=== PATIENT | male | born 1930 | race Caucasian/White ===

== ENCOUNTER 2017-09-22 22:09 | Inpatient (IN) | payer MEDICARE, BC ==
[2017-09-22] MEDS ORDERED: Ondansetron ODT 4 MG TAB PO PRN (23:17)
[2017-09-22] MEDS ORDERED: Eucerin (Mineral Oil/Petrolatum,White) 30 gm Jar TOP PRN (23:17)
[2017-09-22] MEDS ORDERED: Chloraseptic Spray 180 ml Bottle PO PRN (23:17)
[2017-09-22] MEDS ORDERED: hydrALAZINE 20 MG/ML VIAL SLOW IVP PRN (23:17)
[2017-09-22] MEDS ORDERED: Sodium Chloride 0.65% Nasal 44 ML BOT EA NARE PRN (23:17)
[2017-09-22] MEDS ORDERED: Artificial Tears 18 DROP/0.9 ML EA EYE PRN (23:17)
[2017-09-22] MEDS ORDERED: Loratadine 10 MG TAB PO PRN (23:17)
[2017-09-22] MEDS ORDERED: Senokot 8.6 MG TAB PO PRN (23:17)
[2017-09-22] MEDS ORDERED: Zolpidem Tartrate 5 MG TAB PO PRN (23:17)
[2017-09-22] MEDS ORDERED: Acetaminophen 325 MG TAB PO PRN (23:17)
[2017-09-22] MEDS ORDERED: Nitroglycerin 0.4 MG TAB (25 Tab Bottle) SL PRN (23:17)
[2017-09-22] MEDS ORDERED: Mag-Al 1200 mg/1200 mg/30 ML UDCUP PO PRN (23:17)
[2017-09-22] MEDS ORDERED: HYDROcodone/Acetaminophen 5/325 mg Tablet PO PRN (23:17)
[2017-09-22] MEDS ORDERED: Diabetic Tussin 200 MG/10 ML UDCUP PO PRN (23:17)
[2017-09-22] MEDS ORDERED: Loperamide HCl 2 MG CAP PO PRN (23:17)
[2017-09-22] MEDS ORDERED: Milk Of Magnesia 30 ML UDCUP PO PRN (23:17)
[2017-09-22] MEDS ORDERED: Ondansetron HCl/PF 4 MG/2 ML Vial IVP PRN (23:17)
[2017-09-22 23:36] VITALS: BMI 28.6
--- NOTE | 2017-09-23 02:15 | HP ---
PRIMARY CARE PHYSICIAN: In [place], [place], Dr. Leonidas Yoon. DATE OF SERVICE: 09/22/2017 REASON FOR ADMISSION: Direct admission from [facility] emergency room to our hospital for CHF exacerbation. HISTORY OF PRESENT ILLNESS: An 87-year-old male who has a history of chronic diastolic heart failure. His last echo in our hospital in 01/2015, at that time , EF was normal. He has history of severe aortic stenosis and severe mitral regurgitation as well as severe tricuspid regurgitation. This patient had aortic valve replacement. He went to [place] emergency room with increasing shortness of breath. Patient reports that the weather was bad in [place] and he got shortness of breath. He was not able to take a deep breath and he was not improving and that is why his advised him to go to emergency room. At [place] emergency room, patient was found with elevated BNP. Creatinine 1.5, and a T inversion in lead V1-V3. Patient was also having increasing lower extremity edema and orthopnea as well as dyspnea on exertion and considering CHF exacerbation. This patient was directly admitted to telemetry floor. As per my report at [place] emergency room, physician spoke with Dr. Smith, who advised this patient to go to telemetry floor for direct admission. When I saw this patient at that time, patient was comfortable. He reports that he is feeling much better since the emergency room treatment. Patient repaired another echocardiography in 12/2016, at that time, which showed normal EF as well as normal diastolic function and normal functioning bioprosthetic valve in the aortic position. PAST MEDICAL HISTORY: 1. History of CVA, hypertension, dyslipidemia, coronary artery disease with history of CABG x1 in 01/2015 2. History of aortic stenosis required aortic valve replacement in 01/[address] Pavon with Magna bioprosthetic valve 3. History of severe mitral regurgitation and severe tricuspid regurgitation. PAST SURGICAL HISTORY: Aortic valve replacement with bioprosthetic valve, CABG x1, thyroidectomy. PAST PSYCHIATRIC HISTORY: Reviewed and negative. CODE STATUS: FULL CODE. Patient's is surrogate decision maker. 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 He is totally independent. He has no history of tobacco, alcohol, or illicit drug abuse. ALLERGIES: The patient is allergic to IODINE. FAMILY HISTORY: No strong family history of premature coronary artery disease, stroke, or cancer. REVIEW OF SYSTEMS: The following complete review of systems was negative, unless otherwise mentioned in the HPI or below: Constitutional: Weight loss or gain, ability to conduct usual activities. Skin: Rash, itching. Eyes: Double vision, pain. ENT/Mouth: Nose bleeding, neck stiffness, pain, tenderness. Cardiovascular: Palpitations, dyspnea on exertion, orthopnea. Respiratory: Shortness of breath, wheezing, cough, hemoptysis, fever or night sweats. Gastrointestinal: Poor appetite, abdominal pain, heartburn, nausea, vomiting, constipation, or diarrhea. Genitourinary: Urgency, frequency, dysuria, nocturia. Musculoskeletal: Pain, swelling. Neurologic/Psychiatric: Anxiety, depression. Allergy/Immunologic: Skin rash, bleeding tendency. Please see my HPI for pertinent positive and negative. All other review of systems reviewed and negative except as mentioned in the HPI. EMERGENCY ROOM COURSE: Patient is given Lasix at other emergency room. CURRENT HOME MEDICATIONS: Amlodipine 5 mg p.o. daily, aspirin 325 mg p.o. daily , vitamin D3 of 1000 unit p.o. daily, Plavix 75 mg p.o. daily, vitamin B12 of 1000 mcg p.o. daily, lisinopril 10 mg p.o. daily, Zocor 20 mg p.o. at bedtime, Coenzyme Q10 of 100 mg p.o. daily. PHYSICAL EXAMINATION: VITAL SIGNS: Currently, temperature 97.5, pulse 77, respiratory rate 18, saturation 100% on 2 liter oxygen, blood pressure 134/89, weight 172 pounds. GENERAL: Patient is currently alert, awake, no obvious acute distress. HEENT: Normocephalic, atraumatic. Eyes: Pupils round, reactive to light. Extraocular muscle intact. ENT: Oropharynx within normal limits. Moist mucous membranes, no oral lesion, no pharyngeal erythema, no exudate. NECK: Supple, no JVD, no thyromegaly, no carotid bruit. LUNGS: Air entry reduced at base. Few basal rales noted. CARDIAC: S1, S2 appears regular. Systolic murmur noted parasternally with bioprosthetic click. No gallop, no rub. ABDOMEN: Soft, bowel sounds present, nontender, nondistended. No organomegaly , no mass, no suprapubic tenderness. BACK: Unremarkable, no CVA tenderness. EXTREMITIES: Upper extremity, passive movement of all joints are normal. Lower extremity, trace bilateral pitting edema noted. Good distal pulsation. No calf tenderness. SKIN: No skin rash. HEMATOLOGICAL: No lymphadenopathy. PSYCHIATRIC: Normal affect. SIGNIFICANT LABORATORY DATA: BNP 624, creatinine 1.5. EKG, T inversion in lead V1-V3. Chest x-ray showing small pleural effusion, pulmonary vascular congestion. All other blood tests including CBC, BMP, and coagulation profile noted at a local emergency room in [place]. ASSESSMENT AND PLAN: IMPRESSION: 1. Acute on chronic diastolic congestive heart failure exacerbation. 2. History of aortic stenosis with a history of bioprosthetic aortic valve replacement. 3. History of coronary artery disease with a history of coronary artery bypass grafting x1. 4. Hypertension. 5. Dyslipidemia. 6. Chronic kidney disease stage 3. PLAN: Admission to telemetry floor. Continue Lasix 40 mg IV b.i.d., monitor input output chart. Monitor labs and replacing electrolytes accordingly. Resume patient's home medications once verified. DVT prophylaxis is Lovenox 40 mg subcutaneously daily. Gastrointestinal prophylaxis with Pepcid 20 mg p.o. b.i.d., DuoNeb q.6 hourly. Monitor vitals and adjust blood pressure medication while in hospital. Repeat labs tomorrow morning. CODE STATUS: The patient is FULL CODE. The patient's is surrogate decision maker. Disposition plan based on clinical course. We are expecting patient's stay in hospital more than 2 midnights. Plan of care discussed with the patient in detail. MTDD
[2017-09-23 05:31] LABS: #Eosinphils 0.1 thou/uL (0.0-0.7); #Lymphocytes 1.4 thou/uL (1.20-3.40); #Monocytes 0.7 thou/uL (0.11-0.59); #Neutrophils 2.5 thou/uL (1.40-6.50); %Basophils 0.1 % (0.0-1.0); %Eosinophils 2.8 % (0.0-10.0); %Lymphocytes 30.1 % (21.0-51.0); %Monocytes 14.4 % (0.0-10.0); %Neutrophils 52.5 % (42.0-75.0); Hemoglobin 15.4 g/dL (14.0-18.0); Mean Corpuscular HGB CONC 31.4 g/dL (32.0-36.0); Mean Corpuscular Hemoglobin 29.5 pg (27.0-31.0); Mean Corpuscular Volume 93.9 fl (80.0-94.0); Mean Platelet Volume 10.4 fL (7.4-10.4); Platelet Count 157 thou/uL (130-400); White Blood Cell (WBC) Count 4.7 thou/uL (4.8-10.8)
[2017-09-23 05:32] LABS: INR-International Normal Ratio 1.2; PTT 35.1 SEC (22.9-36.1); Prothrombin Time 15.9 SEC (12.0-14.7)
[2017-09-23] MEDS: Furosemide 40 MG/4 ML VIAL SLOW IVP SCH ×2 (05:39→14:28)
[2017-09-23 05:43] LABS: ALT (SGPT) 18 U/L (8-55); AST (SGOT) 22 U/L (5-34); Albumin 3.2 g/dL (3.4-4.8); Alkaline Phosphatase 87 U/L (40-150); Anion Gap 13 mmol/L (10-20); BUN (Urea Nitrogen) 16 mg/dL (8.4-25.7); Bilirubin, Total 1.7 mg/dL (0.2-1.2); Calc. Creatinine Clearance 54 mL/min (70-130); Calcium 9.3 mg/dL (7.8-10.44); Carbon Dioxide 24 mmol/L (23-31); Chloride 105 mmol/L (98-107); Estimated GFR-MDRD 66; Globulin 3.2 g/dL (2.4-3.5); Glucose 93 mg/dL (83-110); Potassium 3.4 mmol/L (3.5-5.1); Protein, Total 6.4 g/dL (5.8-8.1); Sodium 139 mmol/L (136-145)
[2017-09-23 07:11] LABS: Bilirubin Negative (Negative); Blood, Urine Negative (Negative); Clarity CLEAR (Clear); Glucose, Urine (Dipstick) Negative (Negative); Leukocyte Negative (Negative); Nitrite Negative (Negative); Protein, Urine (Dipstick) Negative (Neg-Trace); Specific Gravity, Urine 1.008 (1.002-1.036); Urobilinogen 0.2 mg/dL (0.2-1.0)
[2017-09-23 07:12] LABS: Bacteria/HPF None Seen HPF (None Seen); Hyaline Casts/LPF 0-3 HYALINE CAST LPF (0-3 Hyaline); Pathc Cast-AUWi Flag 0.43 (0-2.49); RBC/HPF 0-3 HPF (0-3); Squamous Epithelial None Seen HPF (0-3); WBC/HPF None Seen HPF (0-3)
[2017-09-23] MEDS: Enoxaparin Sodium 40 MG/0.4 ML SYRINGE SC SCH (08:44)
[2017-09-23] MEDS: Famotidine 20 MG TAB PO SCH ×2 (08:44→21:08)
[2017-09-23] MEDS ORDERED: Prevnar 13-Val Conj/PF 0.5 ML SYRINGE IM ONE (09:00)
[2017-09-23] MEDS ORDERED: Potassium Chloride 20 MEQ TAB PO SCH (13:30)
--- NOTE | 2017-09-23 14:25 | PDOC.PN ---
- Subjective Encounter Start Date: 09/23/17 Encounter Start Time: 07:20 Pt seen for followup re: CHF exacerbation. Reports feeling better. No nausea or vomiting. Dyspnea is better. No chest pain. - Objective Resuscitation Status: Resuscitation Status FULL:Full Resuscitation MAR Reviewed: Yes Vital Signs & Weight: Vital Signs (12 hours) Temp Pulse Pulse Pulse Resp BP BP 09/23/17 12:12 80 14 09/23/17 12:00 97.8 F 75 16 09/23/17 08:47 77 80 127/75 136/80 09/23/17 08:00 98.1 F 74 18 09/23/17 07:03 70 14 09/23/17 04:00 98.2 F 76 16 BP Pulse Ox Pulse Ox Pulse Ox 09/23/17 12:12 09/23/17 12:00 128/74 96 09/23/17 08:47 91 L 92 L 09/23/17 08:00 130/74 98 09/23/17 07:03 09/23/17 04:00 117/71 96 Weight Weight 172 lb 1 oz I&O: 09/22/17 09/23/17 09/24/17 06:59 06:59 06:59 Intake Total 240 Balance 240 Result Diagrams: 09/23/17 04:51 09/23/17 04:51 EKG Reviewed by me: Yes (Tele: NSR) Phys Exam - Physical Examination Constitutional: NAD HEENT: PERRLA, moist MMs, sclera anicteric, oral pharynx no lesions Neck: no nodes, supple, full ROM JVD Respiratory: no wheezing, no rhonchi Bibasal crackles Cardiovascular: RRR, no rub Gastrointestinal: soft, non-tender Musculoskeletal: edema present Neurological: moves all 4 limbs Psychiatric: normal affect Skin: no rash Dx/Plan (1) Acute on chronic diastolic (congestive) heart failure Code(s): I50.33 - ACUTE ON CHRONIC DIASTOLIC (CONGESTIVE) HEART FAILURE Status : Acute Comment: Continue diuretics, await cardiology consult (2) CAD (coronary artery disease) Code(s): I25.10 - ATHSCL HEART DISEASE OF [place] CORONARY ARTERY W/O ANG PCTRS Status: Chronic Comment: stable (3) HLD (hyperlipidemia) Code(s): E78.5 - HYPERLIPIDEMIA, UNSPECIFIED Status: Chronic Comment: continue statin (4) HTN (hypertension) Code(s): I10 - ESSENTIAL (PRIMARY) HYPERTENSION Status: Chronic Qualifiers: Hypertension type: essential hypertension Qualified Code(s): I10 - Essential (primary) hypertension Comment: Monitor vital signs, titrate antihypertensives as needed (5) H/O aortic valve replacement Code(s): Z95.2 - PRESENCE OF PROSTHETIC HEART VALVE Status: Chronic Comment : stable - Plan * . Review of Systems - Review of Systems Constitutional: negative: fever, chills, sweats, weakness, malaise Respiratory: Shortness of Breath, SOB with Excertion. negative: Cough, Dry, Hemoptysis, Pleuritic Pain, Sputum, Wheezing Cardiovascular: negative: chest pain, palpitations, orthopnea, paroxysmal nocturnal dyspnea, edema, light headedness Gastrointestinal: negative: Nausea, Vomiting, Abdominal Pain, Diarrhea, Constipation, Melena, Hematochezia Skin: negative: Rash, Lesions, Carlo, Bruising - Medications/Allergies Allergies/Adverse Reactions: Allergies Allergy/AdvReac Type Severity Reaction Status Date / Time iodine Allergy Rash Verified 02/06/15 00:42 Sulfa (Sulfonamide Allergy Verified 01/06/17 19:48 Antibiotics) Medications: Current Medications Acetaminophen (Tylenol) 650 mg PO Q4H PRN PRN Reason: Headache/Fever or Pain Hydrocodone Bitart/Acetaminophen ([place] 5/325) 1 tab PO Q4H PRN PRN Reason: Moderate Pain (4-6) Al Hydroxide/Mg Hydroxide (Maalox) 30 ml PO Q6H PRN PRN Reason: Heartburn or Indigestion Albuterol/Ipratropium (Duoneb) 3 ml NEB [id number] [facility] Last Admin: 09/23/17 12:12 Dose: 3 ml Artificial Tears (Tears Naturale) 0 drop EA EYE PRN PRN PRN Reason: Dry Eyes Enoxaparin Sodium (Lovenox) 40 mg SC 0900 [facility] Last Admin: 09/23/17 08:44 Dose: 40 mg Famotidine (Pepcid) 20 mg PO BID [facility] Last Admin: 09/23/17 08:44 Dose: 20 mg Furosemide (Lasix) 40 mg SLOW IVP 0600,1400 [facility] Last Admin: 09/23/17 05:39 Dose: 40 mg Guaifenesin (Robitussin Sf) 200 mg PO Q4H PRN PRN Reason: Cough Hydralazine HCl (Apresoline) 10 mg SLOW IVP Q4H PRN PRN Reason: Systolic BP > 180 Loperamide HCl (Imodium) 2 mg PO PRN PRN PRN Reason: Diarrhea/Loose Stools Loratadine (Claritin) 10 mg PO DAILYPRN PRN PRN Reason: Sinus Symptoms Magnesium Hydroxide (Milk Of Magnesium) 30 ml PO DAILYPRN PRN PRN Reason: Constipation Mineral Oil/White Petrolatum (Eucerin Cream) 0 gm TOP BIDPRN PRN PRN Reason: Dry Skin Nitroglycerin (Nitrostat) 0.4 mg SL Q5MIN PRN PRN Reason: Chest Pain Ondansetron HCl (Zofran Odt) 4 mg PO Q6H PRN PRN Reason: Nausea/Vomiting Ondansetron HCl (Zofran) 4 mg IVP Q6H PRN PRN Reason: Nausea/Vomiting Phenol (Chloraseptic [place] 180 Ml Bot) 0 ml PO PRN PRN PRN Reason: Sore Throat Potassium Chloride (K-Dur) 40 meq PO NOW [facility] Stop: 09/23/17 15:30 Senna (Senokot) 2 tab PO HSPRN PRN PRN Reason: Constipation Sodium Chloride ([place] Nasal [place] 0.65%) 0 ml EA NARE QIDPRN PRN PRN Reason: Nasal Congestion Sodium Chloride (Flush - Normal Saline) 10 ml IVF Q12HR [facility] Last Admin: 09/23/17 08:45 Dose: 10 ml Sodium Chloride (Flush - Normal Saline) 10 ml IVF PRN PRN PRN Reason: Saline Flush Zolpidem Tartrate (Ambien) 5 mg PO HSPRN PRN PRN Reason: Insomnia
[2017-09-23] MEDS: Atorvastatin Calcium 10 MG TAB PO SCH (21:08)
[2017-09-24] MEDS: Furosemide 40 MG/4 ML VIAL SLOW IVP SCH ×2 (05:36→16:05)
[2017-09-24 06:04] LABS: Eosinophils 2 % (0-10); Hemoglobin 15.5 g/dL (14.0-18.0); Lymphocytes 32 % (21-51); MDiff Complete? YES; Mean Corpuscular HGB CONC 32.2 g/dL (32.0-36.0); Mean Corpuscular Hemoglobin 29.9 pg (27.0-31.0); Mean Corpuscular Volume 92.9 fl (80.0-94.0); Mean Platelet Volume 10.6 fL (7.4-10.4); Monocytes 17 % (0-10); Neutrophil 49 % (42-75); Platelet Count 130 thou/uL (130-400); RBC Distribution Width 15.6 % (11.5-14.5); Red Blood Cell (RBC) Count 5.18 mill/uL (4.70-6.10); White Blood Cell (WBC) Count 4.5 thou/uL (4.8-10.8)
[2017-09-24 06:05] LABS: BUN (Urea Nitrogen) 15 mg/dL (8.4-25.7); Calc. Creatinine Clearance 48 mL/min (70-130); Calcium 9.5 mg/dL (7.8-10.44); Carbon Dioxide 20 mmol/L (23-31); Chloride 104 mmol/L (98-107); Estimated GFR-MDRD 58; Glucose 89 mg/dL (83-110); Potassium 4.3 mmol/L (3.5-5.1); Sodium 138 mmol/L (136-145)
[2017-09-24 06:45] LABS: Anion Gap 18 mmol/L (10-20)
--- NOTE | 2017-09-24 08:50 | CON ---
DATE OF CONSULTATION: 09/23/2017 PRIMARY PLYCOR OPERATOR: Garrick Smith MD REASON FOR ADMISSION: Congestive heart failure. HISTORY OF PRESENT ILLNESS: Mr. Salinas Jackson is a very pleasant 87-year-old gentleman with history of coronary artery disease and aortic valve disease, previous aortic valve replacement. He was sent her e for progressive swelling of his lower extremities and shortness of breath and has been admitted for further therapy. The patient is not having chest pain or pressure, but he has been short of breath and having increasi ng edema. He was transferred from [place]. PAST MEDICAL HISTORY: 1. History of stroke. 2. History of bypass x1 and aortic valve replacement in 2014. 3. History of mitral regurgitation. PAST SURGICAL HISTORY: Previous aortic valve replacement with prosthetic valve, bioprosthetic. PSYCHIATRIC HISTORY: Negative. SOCIAL HISTORY: No alcohol or tobacco. ALLERGIES: IODINE. FAMILY HISTORY: No strong family history of coronary artery disease. REVIEW OF SYSTEMS: Constitutional: Some confusion and disorientation. Vision: No changes. Hearin g: No changes. Pulmonary: Shortness of breath. Cardiac: Shortness of breath. Gastrointestinal: No nausea, vomiting, or diarrhea. Skin: No rashes. Neurologic: No unilateral weakness or numbnes s. Psychiatric: No unusual depression or anxiety. Hematologic: No unusual bruising. Genitourinar y: No burning with urination. HOME MEDICATIONS: 1. Amlodipine. 2. Aspirin. 3. Plavix. 4. Lisinopril. 5. Zocor. PHYSICAL EXAMINATION: GENERAL: A pleasant elderly gentleman. He is a little disoriented now; it is nightime and he is a l ittle turned around, but he orients quickly. VITAL SIGNS: Blood pressure is 139/70, pulse 80. HEENT: Eyes: Sclerae nonicteric. Mouth: Mucous membranes moist. NECK: Supple. No lymphadenopathy. LUNGS: Few basilar rales. CARDIOVASCULAR: There is a harsh systolic murmur at the left upper sternal border. No diastolic mur mur, no S3. ABDOMEN: Soft, nontender. EXTREMITIES: No clubbing or cyanosis. There is moderate edema. SKIN: Warm and dry. PERTINENT LABORATORY AND X-RAY FINDINGS: Potassium 3.4, creatinine is 1.06. BNP 332 back in 2017. EKG is currently in sinus rhythm. The 12-lead EKG does show some T-wave inversions in V3. No other T-wave changes, no significant ST changes. The most recent echocardiogram in 2014, had severe aortic stenosis that was pre-surgery, but the echocardiogram done 2017, revealed normal ejection fraction o f 60-65%. ASSESSMENT: 1. Systolic heart failure, likely diastolic, acute on chronic. 2. Previous aortic valve replacement. 3. Volume overload. PLAN: 1. Agree with intravenous Lasix. 2. Echocardiogram to be repeated. 3. Dr. Smith to resume patient's care tomorrow morning.
[2017-09-24] MEDS: Ubidecarenone 50 MG CAP PO SCH (10:53)
[2017-09-24] MEDS: Lisinopril 10 MG TAB PO SCH (10:54)
[2017-09-24] MEDS: Aspirin 325 mg Enteric Coated Tablet PO SCH (10:54)
[2017-09-24] MEDS: Clopidogrel Bisulfate 75 MG TAB PO SCH (10:55)
[2017-09-24] MEDS: Cyanocobalamin (Vitamin B-12) 1,000 MCG TAB PO SCH (10:55)
[2017-09-24] MEDS: Amlodipine 5 MG TAB PO SCH (10:55)
[2017-09-24] MEDS: Enoxaparin Sodium 40 MG/0.4 ML SYRINGE SC SCH (10:56)
[2017-09-24] MEDS: Famotidine 20 MG TAB PO SCH (10:56)
[2017-09-24] MEDS ORDERED: ISOVUE-370 76%-LOCM 1 ML ONE (13:16)
--- NOTE | 2017-09-24 13:33 | PDOC.PN ---
- Subjective Encounter Start Date: 09/24/17 Encounter Start Time: 11:00 Pt seen for followup re: CHF exacerbation. Reports feeling well. Reports having chest pain with deep breaths earlier. No nausea or vomiting. - Objective Resuscitation Status: Resuscitation Status FULL:Full Resuscitation MAR Reviewed: Yes Vital Signs & Weight: Vital Signs (12 hours) Temp Pulse Resp BP Pulse Ox 09/24/17 08:18 100 09/24/17 08:15 75 15 100 09/24/17 08:14 96.2 F L 78 20 137/78 100 09/24/17 08:00 96.2 F L 75 15 09/24/17 04:00 97.7 F 76 20 109/61 99 Weight Weight 171 lb 9.6 oz I&O: 09/23/17 09/24/17 09/25/17 06:59 06:59 06:59 Intake Total 240 460 Output Total 350 Balance 240 110 Result Diagrams: 09/24/17 05:02 09/24/17 05:02 EKG Reviewed by me: Yes (Tele: NSR) Phys Exam - Physical Examination Constitutional: NAD HEENT: PERRLA, moist MMs, sclera anicteric, oral pharynx no lesions Neck: no nodes, supple, full ROM JVD Respiratory: no wheezing, no rales, no rhonchi, clear to auscultation bilateral Cardiovascular: RRR, no rub Gastrointestinal: soft, non-tender, positive bowel sounds Trace edema ramos LE Neurological: moves all 4 limbs Psychiatric: normal affect Skin: no rash Dx/Plan (1) Acute on chronic diastolic (congestive) heart failure Code(s): I50.33 - ACUTE ON CHRONIC DIASTOLIC (CONGESTIVE) HEART FAILURE Status : Acute Comment: Continue diuretics. Appreciate cardiology consult. 2D echo pending. (2) Chest pain Code(s): R07.9 - CHEST PAIN, UNSPECIFIED Status: Acute Comment: Brief episode of pleuritic chest pain, check d-dimer to r/o PE (3) CAD (coronary artery disease) Code(s): I25.10 - ATHSCL HEART DISEASE OF [place] CORONARY ARTERY W/O ANG PCTRS Status: Chronic Comment: stable (4) HLD (hyperlipidemia) Code(s): E78.5 - HYPERLIPIDEMIA, UNSPECIFIED Status: Chronic Comment: continue statin (5) HTN (hypertension) Code(s): I10 - ESSENTIAL (PRIMARY) HYPERTENSION Status: Chronic Qualifiers: Hypertension type: essential hypertension Qualified Code(s): I10 - Essential (primary) hypertension Comment: titrate antihypertensives as needed (6) H/O aortic valve replacement Code(s): Z95.2 - PRESENCE OF PROSTHETIC HEART VALVE Status: Chronic Comment : stable - Plan plan discussed w/ family, PT/OT, out of bed/ambulate * . Likely home 24-48 hrs. Review of Systems - Review of Systems Constitutional: negative: fever, chills, sweats, weakness, malaise Respiratory: SOB with Excertion. negative: Cough, Dry, Shortness of Breath, Hemoptysis, Pleuritic Pain, Sputum, Wheezing Cardiovascular: chest pain. negative: palpitations, orthopnea, paroxysmal nocturnal dyspnea, edema, light headedness Gastrointestinal: negative: Nausea, Vomiting, Abdominal Pain, Diarrhea, Constipation, Melena, Hematochezia Genitourinary: negative: Dysuria, Frequency, Incontinence, Hematuria, Retention - Medications/Allergies Allergies/Adverse Reactions: Allergies Allergy/AdvReac Type Severity Reaction Status Date / Time iodine Allergy Rash Verified 02/06/15 00:42 Sulfa (Sulfonamide Allergy Verified 01/06/17 19:48 Antibiotics) Medications: Current Medications Acetaminophen (Tylenol) 650 mg PO Q4H PRN PRN Reason: Headache/Fever or Pain Hydrocodone Bitart/Acetaminophen ([place] 5/325) 1 tab PO Q4H PRN PRN Reason: Moderate Pain (4-6) Al Hydroxide/Mg Hydroxide (Maalox) 30 ml PO Q6H PRN PRN Reason: Heartburn or Indigestion Albuterol/Ipratropium (Duoneb) 3 ml NEB [id number] [facility] Last Admin: 09/24/17 08:15 Dose: 3 ml Amlodipine Besylate (Norvasc) 5 mg PO DAILY [facility] Last Admin: 09/24/17 10:55 Dose: 5 mg Artificial Tears (Tears Naturale) 0 drop EA EYE PRN PRN PRN Reason: Dry Eyes Aspirin (Ecotrin) 325 mg PO DAILY [facility] Last Admin: 09/24/17 10:54 Dose: 325 mg Atorvastatin Calcium (Lipitor) 10 mg PO HS [facility] Last Admin: 09/23/17 21:08 Dose: 10 mg Cholecalciferol (Vitamin D3) 1,000 units PO DAILY [facility] Last Admin: 09/24/17 10:54 Dose: 1,000 units Clopidogrel Bisulfate (Plavix) 75 mg PO DAILY [facility] Last Admin: 09/24/17 10:55 Dose: 75 mg Coenzyme Q10 (Coenzyme Q10) 100 mg PO DAILY [facility] Last Admin: 09/24/17 10:53 Dose: 100 mg Cyanocobalamin (Vitamin B-12) 1,000 mcg PO DAILY [facility] Last Admin: 09/24/17 10:55 Dose: 1,000 mcg Enoxaparin Sodium (Lovenox) 40 mg SC 0900 [facility] Last Admin: 09/24/17 10:56 Dose: 40 mg Famotidine (Pepcid) 20 mg PO 0900 [facility] Furosemide (Lasix) 40 mg SLOW IVP 0600,1400 [facility] Last Admin: 09/24/17 05:36 Dose: 40 mg Guaifenesin (Robitussin Sf) 200 mg PO Q4H PRN PRN Reason: Cough Hydralazine HCl (Apresoline) 10 mg SLOW IVP Q4H PRN PRN Reason: Systolic BP > 180 Lisinopril (Zestril) 10 mg PO DAILY [facility] Last Admin: 09/24/17 10:54 Dose: 10 mg Loperamide HCl (Imodium) 2 mg PO PRN PRN PRN Reason: Diarrhea/Loose Stools Loratadine (Claritin) 10 mg PO DAILYPRN PRN PRN Reason: Sinus Symptoms Magnesium Hydroxide (Milk Of Magnesium) 30 ml PO DAILYPRN PRN PRN Reason: Constipation Mineral Oil/White Petrolatum (Eucerin Cream) 0 gm TOP BIDPRN PRN PRN Reason: Dry Skin Nitroglycerin (Nitrostat) 0.4 mg SL Q5MIN PRN PRN Reason: Chest Pain Ondansetron HCl (Zofran Odt) 4 mg PO Q6H PRN PRN Reason: Nausea/Vomiting Ondansetron HCl (Zofran) 4 mg IVP Q6H PRN PRN Reason: Nausea/Vomiting Phenol (Chloraseptic [place] 180 Ml Bot) 0 ml PO PRN PRN PRN Reason: Sore Throat Senna (Senokot) 2 tab PO HSPRN PRN PRN Reason: Constipation Sodium Chloride ([place] Nasal [place] 0.65%) 0 ml EA NARE QIDPRN PRN PRN Reason: Nasal Congestion Sodium Chloride (Flush - Normal Saline) 10 ml IVF Q12HR [facility] Last Admin: 09/23/17 21:08 Dose: 10 ml Sodium Chloride (Flush - Normal Saline) 10 ml IVF PRN PRN PRN Reason: Saline Flush Last Admin: 09/24/17 05:37 Dose: 10 ml Zolpidem Tartrate (Ambien) 5 mg PO HSPRN PRN PRN Reason: Insomnia
--- NOTE | 2017-09-24 16:43 | PDOC.EVN ---
Event Note - Event Note Event Note: Pt has elevated d-dimer. Discussed with patient and . They both report he is not allergic to iodine or IV dye, had cardiac cath and CT angiograms in the past. Will check CT to r/o PE. Pt also appears to be developing delirium, oriented to person only. No evidence of infection at this time, pt is not hypoxic. Will check TSH and liver profile, will continue to monitor. Neuro exam was nonfocal.
--- NOTE | 2017-09-24 18:23 | PDOC.EVN ---
Event Note - Event Note Event Note: CTA report reviewed. 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 Updated pt and . In terms of confusion, pt's reports that the confusion started prior to ER visit (cause of the visit). Will continue to monitor and look for other etiologies.
[2017-09-24 18:45] LABS: ALT (SGPT) 16 U/L (8-55); AST (SGOT) 24 U/L (5-34); Alkaline Phosphatase 105 U/L (40-150); Bilirubin, Total 2.1 mg/dL (0.2-1.2)
[2017-09-24] MEDS: Atorvastatin Calcium 10 MG TAB PO SCH (20:32)
--- NOTE | 2017-09-24 21:35 | CT ---
CTA OF THE CHEST WITH CONTRAST 09/24/17 COMPARISON: 01/07/17 HISTORY: Shortness of breath. TECHNIQUE: Multiple contiguous axial images are obtained in a CTA of the chest with contrast per pulmonary embol ism protocol. 3D oblique MIP reformats and direct coronal reformats were performed. FINDINGS: There is an abnormal web-like appearance within the main pulmonary arteries. These may represent reca nalized remote bilateral pulmonary emboli. This could also represent some short of unusual mixing art ifact. These abnormalities extend into the pulmonary arteries to the lower lobes. No complete occlusi on of the pulmonary artery and vessels is seen. The heart is enlarged. There is straightening of the interventricular septum which is unchanged kelsie red to the prior examination. No hilar or mediastinal lymphadenopathy are appreciated. There are small bilateral pleural effusions with adjacent atelectasis. There is a 1.9 cm mass-like ar ea in the lingula which has slightly enlarged compared to the prior examination. This could represent mild atelectasis but a pulmonary mass cannot be excluded. The visualized subdiaphragmatic structures are unremarkable. Degenerative changes are seen in the spi ne. The chest wall soft tissues are unremarkable. IMPRESSION: 1. There are web-like opacities in the pulmonary arteries. These do not have the appearance of a cute pulmonary emboli but these could represent recanalized chronic remote pulmonary emboli. These we re not seen on the prior examination from 2017. 2. Bilateral pleural effusions. 3. There is a mass-like area in the lingula which appears to have enlarged compared to the prior examination. This could represent round atelectasis but a pulmonary mass cannot be excluded. Code T POS: [facility]
[2017-09-25] MEDS: Furosemide 40 MG/4 ML VIAL SLOW IVP SCH ×2 (05:35→14:40)
[2017-09-25 05:48] LABS: Anion Gap 14 mmol/L (10-20); BUN (Urea Nitrogen) 15 mg/dL (8.4-25.7); Calc. Creatinine Clearance 47 mL/min (70-130); Calcium 9.3 mg/dL (7.8-10.44); Carbon Dioxide 27 mmol/L (23-31); Chloride 101 mmol/L (98-107); Estimated GFR-MDRD 56; Glucose 90 mg/dL (83-110); Potassium 3.4 mmol/L (3.5-5.1); Sodium 139 mmol/L (136-145)
[2017-09-25 07:44] LABS: Band 2 % (5-11); Eosinophils 4 % (0-10); Hemoglobin 14.7 g/dL (14.0-18.0); Lymphocytes 46 % (21-51); MDiff Complete? YES; Mean Corpuscular HGB CONC 31.6 g/dL (32.0-36.0); Mean Corpuscular Volume 91.7 fl (80.0-94.0); Mean Platelet Volume 9.2 fL (7.4-10.4); Monocytes 9 % (0-10); Neutrophil 38 % (42-75); Platelet Count 140 thou/uL (130-400); RBC Distribution Width 15.4 % (11.5-14.5); Red Blood Cell (RBC) Count 5.09 mill/uL (4.70-6.10); White Blood Cell (WBC) Count 4.2 thou/uL (4.8-10.8)
[2017-09-25] MEDS: Ubidecarenone 50 MG CAP PO SCH ×4 (09:14→09:19)
[2017-09-25] MEDS: Cyanocobalamin (Vitamin B-12) 1,000 MCG TAB PO SCH (09:14)
[2017-09-25] MEDS: Aspirin 325 mg Enteric Coated Tablet PO SCH (09:14)
[2017-09-25] MEDS: Amlodipine 5 MG TAB PO SCH (09:16)
[2017-09-25] MEDS: Lisinopril 10 MG TAB PO SCH (09:16)
[2017-09-25] MEDS: Clopidogrel Bisulfate 75 MG TAB PO SCH (09:17)
[2017-09-25] MEDS: Enoxaparin Sodium 40 MG/0.4 ML SYRINGE SC SCH (09:17)
[2017-09-25] MEDS: Famotidine 20 MG TAB PO SCH (09:17)
--- NOTE | 2017-09-25 10:47 | CT ---
CT OF THE BRAIN WITHOUT CONTRAST: Date: 09/25/17 COMPARISON: None. HISTORY: Confusion, with possible stroke. TECHNIQUE: Multiple contiguous axial images were obtained in a CT of the brain without contrast. FINDINGS: There are scattered hypodensities in the subcortical and periventricular white matter, likely seconda ry to small vessel ischemic disease. There is encephalomalacia in the left frontal lobe from prior re mote infarction. No new confluent infarction is seen. There is no evidence of hydrocephalus, intracra nial hemorrhage, or extra-axial fluid collection. The calvarium and overlying soft tissues are unremarkable. The visualized paranasal sinuses and masto id air cells are well aerated. IMPRESSION: No evidence of acute intracranial abnormality. POS: [facility]
[2017-09-25] MEDS ORDERED: Potassium Chloride 20 MEQ TAB PO SCH (15:15)
--- NOTE | 2017-09-25 17:50 | PDOC.PN ---
- Subjective Encounter Start Date: 09/25/17 Encounter Start Time: 08:00 Pt seen for followup re: acute encephalopathy. Continues to be oriented to person only, denies any complaints. - Objective Resuscitation Status: Resuscitation Status FULL:Full Resuscitation MAR Reviewed: Yes Vital Signs & Weight: Vital Signs (12 hours) Temp Pulse Resp BP BP Pulse Ox 09/25/17 16:00 98.1 F 18 120/70 95 09/25/17 15:25 96 09/25/17 15:22 77 16 09/25/17 11:55 97.6 F 77 20 120/70 94 L 09/25/17 09:16 72 109/68 09/25/17 08:00 97.7 F 72 18 109/68 93 L Weight Weight 161 lb 14.4 oz I&O: 09/24/17 09/25/17 09/26/17 06:59 06:59 06:59 Intake Total 460 240 Output Total 350 250 Balance 110 -10 Result Diagrams: 09/26/17 05:00 09/26/17 05:00 EKG Reviewed by me: Yes (Tele: NSR) Phys Exam - Physical Examination Constitutional: NAD HEENT: moist MMs, sclera anicteric Neck: no nodes, supple, full ROM JVD Bibasal crackles Cardiovascular: RRR, no rub Gastrointestinal: soft, no distention, positive bowel sounds Neurological: moves all 4 limbs Psychiatric: normal affect Deviation from normal: Oriented to person only Dx/Plan (1) Acute encephalopathy Code(s): G93.40 - ENCEPHALOPATHY, UNSPECIFIED Status: Acute Comment: Present on admission, no clear etioology at this time. Continue to monitor and workup. (2) Acute on chronic diastolic (congestive) heart failure Code(s): I50.33 - ACUTE ON CHRONIC DIASTOLIC (CONGESTIVE) HEART FAILURE Status : Acute Comment: Continue diuretics. (3) Chest pain Code(s): R07.9 - CHEST PAIN, UNSPECIFIED Status: Acute Comment: Pt appears to have had an old PE, also has RV dilatation on 2D echo. 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 Pulmonology consulted for opinion and help with management. (4) CAD (coronary artery disease) Code(s): I25.10 - ATHSCL HEART DISEASE OF [place] CORONARY ARTERY W/O ANG PCTRS Status: Chronic Comment: stable (5) HLD (hyperlipidemia) Code(s): E78.5 - HYPERLIPIDEMIA, UNSPECIFIED Status: Chronic Comment: on statin (6) HTN (hypertension) Code(s): I10 - ESSENTIAL (PRIMARY) HYPERTENSION Status: Chronic Qualifiers: Hypertension type: essential hypertension Qualified Code(s): I10 - Essential (primary) hypertension Comment: Continue to monitor vital signs and titrate antihypertensives as needed (7) H/O aortic valve replacement Code(s): Z95.2 - PRESENCE OF PROSTHETIC HEART VALVE Status: Chronic Comment : stable - Plan plan discussed w/ family * . Review of Systems - Review of Systems Constitutional: negative: fever, chills, sweats, weakness, malaise Respiratory: negative: Cough, Shortness of Breath, Hemoptysis, SOB with Excertion, Pleuritic Pain, Wheezing Cardiovascular: negative: chest pain, palpitations, orthopnea, paroxysmal nocturnal dyspnea, edema, light headedness - Medications/Allergies Allergies/Adverse Reactions: Allergies Allergy/AdvReac Type Severity Reaction Status Date / Time Sulfa (Sulfonamide Allergy Verified 01/06/17 19:48 Antibiotics) Medications: Current Medications Acetaminophen (Tylenol) 650 mg PO Q4H PRN PRN Reason: Headache/Fever or Pain Hydrocodone Bitart/Acetaminophen ([place] 5/325) 1 tab PO Q4H PRN PRN Reason: Moderate Pain (4-6) Al Hydroxide/Mg Hydroxide (Maalox) 30 ml PO Q6H PRN PRN Reason: Heartburn or Indigestion Albuterol/Ipratropium (Duoneb) 3 ml NEB [id number] [facility] Last Admin: 09/25/17 15:22 Dose: 3 ml Amlodipine Besylate (Norvasc) 5 mg PO DAILY [facility] Last Admin: 09/25/17 09:16 Dose: 5 mg Artificial Tears (Tears Naturale) 0 drop EA EYE PRN PRN PRN Reason: Dry Eyes Aspirin (Ecotrin) 325 mg PO DAILY [facility] Last Admin: 09/25/17 09:14 Dose: 325 mg Atorvastatin Calcium (Lipitor) 10 mg PO HS [facility] Last Admin: 09/24/17 20:32 Dose: 10 mg Cholecalciferol (Vitamin D3) 1,000 units PO DAILY [facility] Last Admin: 09/25/17 09:16 Dose: 1,000 units Clopidogrel Bisulfate (Plavix) 75 mg PO DAILY [facility] Last Admin: 09/25/17 09:17 Dose: 75 mg Coenzyme Q10 (Coenzyme Q10) 100 mg PO DAILY [facility] Last Admin: 09/25/17 09:19 Dose: 100 mg Cyanocobalamin (Vitamin B-12) 1,000 mcg PO DAILY [facility] Last Admin: 09/25/17 09:14 Dose: 1,000 mcg Enoxaparin Sodium (Lovenox) 40 mg SC 0900 [facility] Last Admin: 09/25/17 09:17 Dose: 40 mg Famotidine (Pepcid) 20 mg PO 0900 [facility] Last Admin: 09/25/17 09:17 Dose: 20 mg Furosemide (Lasix) 40 mg SLOW IVP 0600,1400 [facility] Last Admin: 09/25/17 14:40 Dose: 40 mg Guaifenesin (Robitussin Sf) 200 mg PO Q4H PRN PRN Reason: Cough Hydralazine HCl (Apresoline) 10 mg SLOW IVP Q4H PRN PRN Reason: Systolic BP > 180 Lisinopril (Zestril) 10 mg PO DAILY [facility] Last Admin: 09/25/17 09:16 Dose: 10 mg Loperamide HCl (Imodium) 2 mg PO PRN PRN PRN Reason: Diarrhea/Loose Stools Loratadine (Claritin) 10 mg PO DAILYPRN PRN PRN Reason: Sinus Symptoms Magnesium Hydroxide (Milk Of Magnesium) 30 ml PO DAILYPRN PRN PRN Reason: Constipation Metoprolol Tartrate (Lopressor) 12.5 mg PO BID [facility] Mineral Oil/White Petrolatum (Eucerin Cream) 0 gm TOP BIDPRN PRN PRN Reason: Dry Skin Nitroglycerin (Nitrostat) 0.4 mg SL Q5MIN PRN PRN Reason: Chest Pain Ondansetron HCl (Zofran Odt) 4 mg PO Q6H PRN PRN Reason: Nausea/Vomiting Ondansetron HCl (Zofran) 4 mg IVP Q6H PRN PRN Reason: Nausea/Vomiting Phenol (Chloraseptic [place] 180 Ml Bot) 0 ml PO PRN PRN PRN Reason: Sore Throat Senna (Senokot) 2 tab PO HSPRN PRN PRN Reason: Constipation Sodium Chloride ([place] Nasal [place] 0.65%) 0 ml EA NARE QIDPRN PRN PRN Reason: Nasal Congestion Sodium Chloride (Flush - Normal Saline) 10 ml IVF Q12HR [facility] Last Admin: 09/25/17 09:18 Dose: 10 ml Sodium Chloride (Flush - Normal Saline) 10 ml IVF PRN PRN PRN Reason: Saline Flush Last Admin: 09/25/17 05:35 Dose: 10 ml Zolpidem Tartrate (Ambien) 5 mg PO HSPRN PRN PRN Reason: Insomnia
[2017-09-25] MEDS: Atorvastatin Calcium 10 MG TAB PO SCH (21:31)
[2017-09-25] MEDS: Metoprolol Tartrate 25 MG TAB PO SCH (21:31)
--- NOTE | 2017-09-26 01:28 | CON ---
DATE OF CONSULTATION: 09/25/2017 SERVICE: Pulmonary Medicine. REASON FOR CONSULTATION: Abnormal CT. HISTORY OF PRESENT ILLNESS: The patient is a pleasant 87-year-old white male who presented to the hospital with confusion. He typically is pretty sharp. His reports that he had increasing confusion brought him to the emergency department. He was found to be floridly volume overloaded. He has undergone aggressive diuretics. Originally, he required some oxygen. He was then titrated off of that onto room air. He remains a little bit volume overloaded, but his volume status has improved dramatically. He remains confused. In investigation, hypoxemia was being undertaken. D-dimer was abnormal, which prompted a CT of the chest with contrast. There was an abnormal finding on it for which I was consulted. He currently denies any chest pain, fevers, chills, nausea, vomiting or shortness of breath. He is pleasantly confused and does not actually realize he is in the hospital right now. PAST MEDICAL HISTORY: 1. Hypertension. 2. Dyslipidemia. 3. Coronary artery disease. 4. Severe mitral regurgitation. 5. History of stroke. PAST SURGICAL HISTORY: 1. Aortic valve replacement with coronary artery bypass graft x1. 2. Thyroidectomy. 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 He has no exposure to chemicals, dust, asbestos, or tuberculosis that he is aware of. He denied any alcohol, tobacco or illicit drug use. Prior to this hospital stay, he was completely independent. FAMILY HISTORY: Noncontributory. ALLERGIES: IODINE. MEDICATIONS: List of his inpatient medications were reviewed. There are no specific updates made at this time. REVIEW OF SYSTEMS: General, head, ears, eyes, nose, throat, cardiovascular, respiratory, GI, , musculoskeletal, neurologic, and skin is negative except as mentioned in the HPI. PHYSICAL EXAMINATION: VITAL SIGNS: Afebrile, pulse 77, blood pressure 120/70, respirations 18, saturation 95% on room air. GENERAL: The patient is awake and alert, no apparent distress. LUNGS: Decent air entry. Dependent crackles are present. No prolonged expiratory phase or wheezing is appreciated. HEART: Normal rate, regular. ABDOMEN: Soft, nontender, nondistended. Bowel sounds are positive. MUSCULOSKELETAL: No cyanosis or clubbing. There is trace 1+ pitting throughout bilateral lower extremities. There is evidence of significant reduction in size of the edema here recently. NEUROLOGIC: Grossly nonfocal. LABORATORY DATA: WBC 4.2, hemoglobin 14.7, platelets 147,000. Neutrophil count is 38% with only 2% bands. Lymphocyte count is 46%. INR 1.2. Creatinine 1.22 and up trending. Basic metabolic profile is otherwise unremarkable. TSH 2.6. Potassium 3.4. Urinalysis is unremarkable. IMAGIN. CT of the brain demonstrates no acute intracranial abnormality. 2. Echocardiogram demonstrates severely enlarged right ventricular cavity. There is elevated right ventricular systolic pressure. Severe mitral regurgitation is present with massive dilation in the left atrium. Ejection fraction is normal. 3. CT of the chest demonstrates findings consistent with massive volume overload including bilateral pleural effusions, interstitial fullness, ground glass opacifications throughout bilateral lung acosta, and pulmonary vascular congestion. There is also evidence of an abnormal filling change in the pulmonary artery. He has a lingular nodule present which was here a year ago. Slightly increased in size, but so as all the other volume overload features. ASSESSMENT: 1. Acute hypoxic respiratory failure, resolved. 2. Acute on chronic diastolic and valvular heart failure. 3. Pulmonary nodule of the lingula. 4. 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 5. Abnormal filling defect in the pulmonary artery on CTA. DISCUSSION AND PLAN: I do not think the patient has a pulmonary embolism. I do not think he had a subacute PE recently and is undergoing re-cannulation. My suspicion is that we were dealing with is a mixing defect coming from severe mitral regurgitant flow. This is likely creating backflow through the pulmonary venous system. At this point, would not recommend any anticoagulation moving forward. If his presentation was PE driven, the patient would not have made such a profound recovery with diuretics. We will reassess this in the outpatient setting in 4-6 weeks. In the meantime, we will need to focus on making certain the patient remains at euvolemia. Tight blood pressure control is warranted to decrease the amount of backflow through the mitral valve. At this point, he has no further requirements for inpatient Pulmonary Critical Care opinion, and will sign off, but I would like for him to follow up with me in clinic in 4 to 6 weeks. At that time, repeat CT of the chest will be considered, particularly if he has returned to euvolemia. 70 minutes have been devoted to this patient in various activities. I personally reviewed all imaging studies and laboratory data noted within this document. For fifty percent of this time, I was interacting with the patient at the bedside or coordinating care with the care team. For the remainder of the time I was immediately available to the patient in the hospital unit. DOM
[2017-09-26] MEDS ORDERED: Furosemide 40 MG/4 ML VIAL SLOW IVP SCH (06:00)
[2017-09-26 06:03] LABS: Anion Gap 14 mmol/L (10-20); BUN (Urea Nitrogen) 15 mg/dL (8.4-25.7); Calc. Creatinine Clearance 46 mL/min (70-130); Calcium 9.4 mg/dL (7.8-10.44); Carbon Dioxide 24 mmol/L (23-31); Chloride 102 mmol/L (98-107); Estimated GFR-MDRD 60; Glucose 98 mg/dL (83-110); Potassium 4.2 mmol/L (3.5-5.1); Sodium 136 mmol/L (136-145)
[2017-09-26 06:11] LABS: Eosinophils 4 % (0-10); Hemoglobin 14.7 g/dL (14.0-18.0); Lymphocytes 31 % (21-51); MDiff Complete? YES; Mean Corpuscular HGB CONC 32.1 g/dL (32.0-36.0); Mean Corpuscular Hemoglobin 29.4 pg (27.0-31.0); Mean Corpuscular Volume 91.7 fl (80.0-94.0); Monocytes 17 % (0-10); Neutrophil 47 % (42-75); Platelet Count 142 thou/uL (130-400); RBC Distribution Width 15.5 % (11.5-14.5); Red Blood Cell (RBC) Count 5.01 mill/uL (4.70-6.10); White Blood Cell (WBC) Count 3.7 thou/uL (4.8-10.8)
[2017-09-26] MEDS: Ubidecarenone 50 MG CAP PO SCH (09:31)
[2017-09-26] MEDS: Clopidogrel Bisulfate 75 MG TAB PO SCH (09:32)
[2017-09-26] MEDS: Amlodipine 5 MG TAB PO SCH (09:32)
[2017-09-26] MEDS: Famotidine 20 MG TAB PO SCH (09:32)
[2017-09-26] MEDS: Aspirin 325 mg Enteric Coated Tablet PO SCH (09:32)
[2017-09-26] MEDS: Lisinopril 10 MG TAB PO SCH (09:33)
[2017-09-26] MEDS: Metoprolol Tartrate 25 MG TAB PO SCH (09:33)
[2017-09-26] MEDS: Cyanocobalamin (Vitamin B-12) 1,000 MCG TAB PO SCH (09:33)
[2017-09-26] MEDS: Enoxaparin Sodium 40 MG/0.4 ML SYRINGE SC SCH (09:34)
[2017-09-26 11:51] VITALS: BP 105/65; TEMP 97.9
[2017-09-26] MEDS ORDERED: Prevnar 13-Val Conj/PF 0.5 ML SYRINGE IM ONE (16:30)
--- NOTE | 2017-09-26 17:04 | DIS ---
DATE OF ADMISSION: 09/22/2017 DATE OF DISCHARGE: 09/26/2017 PRIMARY CARE PHYSICIAN: Leonidas Yoon M.D. DISCHARGE DIAGNOSES: 1. Acute on chronic diastolic congestive heart failure. 2. Volume overload. 3. Delirium. 4. Severe mitral regurgitation. 5. Severely elevated pulmonary artery pressures. CONDITION OF PATIENT ON THE DAY OF DISCHARGE: Stable. I assessed Mr. Jackson on the day of discharge . He denies any chest pain or shortness of breath. Vital signs are stable. S1 and S2 are heard, re gular. Lungs are clear to auscultation bilaterally. DISCHARGE MEDICATIONS: He has been started on furosemide 20 mg daily orally. Otherwise, the preadmi ssion home medications were not changed, as dictated on history and physical note from admission. INVESTIGATIONS DURING THIS HOSPITALIZATION: On 09/24/2017, patient had transthoracic echocardiograph y which showed ejection fraction for the left ventricle at 60%-65%, severely enlarged right ventricle cavity, severely dilated left atrium, severe mitral regurgitation, mitral valve prolapse, moderate t ricuspid regurgitation, pulmonary artery systolic pressure approximately 60 mmHg and gradients within normal range for prosthetic aortic valve. On 09/24/2017, he had CT angiogram of the chest, which showed oblique opacities in the pulmonary tomás jessica. They do not have the appearance of acute pulmonary emboli, but could represent recanalized chr onic remote pulmonary emboli, according to Radiology service. He also had a mass-like area in the li ngula which appeared to have enlarged compared to prior examination. This could represent a round at electasis, but a pulmonary mass could not be excluded. On 09/25/2017, patient had a noncontrast CT scan of the brain, which did not show any evidence of acu te intracranial abnormality. CONSULTATIONS DURING THIS HOSPITALIZATION: Cardiology, Dr. Andres and Pulmonology, Dr. Jason. HOSPITAL COURSE: Mr. Jackson is a pleasant 87-year-old gentleman who was admitted to [facility] on 09/22/2017 following transfer from [facility] for CHF ex acerbation. He received intravenous diuretics. He was seen by Cardiology Service. He had investiga tions as described above. He was also seen by Pulmonology Service for suspected chronic pulmonary em bolus. Pulmonology Service felt that the imaging abnormalities seen on CT scan was likely secondary to mixing defect coming from severe mitral regurgitant flow, likely creating back flow through the pu lmonary venous system. Pulmonary Service would like to follow up with the patient in 4-6 weeks. Mr. Jackson has been cleared for discharge by both Pulmonology and Cardiology Services and is being di scharged home in a stable condition. On the day of discharge, he has a white count of 3700, hemoglobin 14.7, platelet count 142,000, anthony l creatinine and normal electrolytes. His TSH during this hospitalization was normal. His BNP durin g this hospitalization was elevated at 1114.8. His total bilirubin was elevated at 2.1 on 09/24/2017 and his direct bilirubin was elevated at 1.0. He will need these tests rechecked as outpatient. Many thanks for allowing me to participate in your patient's care. Please feel free to contact me wi th any questions or concerns. DISCHARGE DESTINATION: Home. TOTAL AMOUNT OF TIME SPENT COORDINATING THIS DISCHARGE: 33 minutes.
[2017-09-27] MEDS ORDERED: Furosemide 20 MG TAB PO SCH (09:00)
== END 2017-09-26 17:00 | disposition home or self-care (01) | DRG 291 ==
LOC: 2NO 23:13
PROVIDERS: ADMIT Internal Medicine; ATTEND Internal Medicine
DX: I13.0 Hypertensive heart and chronic kidney disease with heart failure and stage 1 through stage 4 chronic kidney disease, or unspecified chronic kidney disease (principal); I50.33 Acute on chronic diastolic (congestive) heart failure; J96.01 Acute respiratory failure with hypoxia; G93.40 Encephalopathy, unspecified; I27.82 Chronic pulmonary embolism; I08.1 Rheumatic disorders of both mitral and tricuspid valves; Z79.01 Long term (current) use of anticoagulants; N18.3 Chronic kidney disease, stage 3 (moderate); Z95.1 Presence of aortocoronary bypass graft; E78.5 Hyperlipidemia, unspecified; Z95.2 Presence of prosthetic heart valve; Z86.73 Personal history of transient ischemic attack (TIA), and cerebral infarction without residual deficits; I25.10 Atherosclerotic heart disease of native coronary artery without angina pectoris; E89.0 Postprocedural hypothyroidism; Z91.041 Radiographic dye allergy status; Z79.82 Long term (current) use of aspirin; I27.20 Pulmonary hypertension, unspecified; R91.8 Other nonspecific abnormal finding of lung field
CPT/HCPCS: 36415; 70450; 71275; 80048; 80053; 80076; 81001; 83880; 84443; 85025; 85379; 85610; 85730; 90471; 90670; 93306; 93798; 94640; A4216; G0009; G8978-GP-CI; G8979-GP-CI; G8980-GP-CI; G8987-GO-CJ; G8988-GO-CH; J1650; J1940; J7620

== ENCOUNTER → 2017-10-05 | Day surgery (SDC) | payer MEDICARE, BC ==
[2017-10-01 16:51] VITALS: BMI 22.4
[~2017-10-05] MED LIST: PHENYLEPHRINE-NS 100 MCG/ML 10 ML SYRINGE ONE; PROPOFOL 20 ML ONE; PROPOFOL 200 MG/20 ML VIAL ONE
--- NOTE | 2017-10-05 08:46 | ECHO ---
TRANSESOPHAGEAL ECHOCARDIOGRAM: HISTORY: The patient is an 87-year-old gentleman with mitral regurgitation. DESCRIPTION OF PROCEDURE: The patient taken to PACU. The patient sedated by anesthesiology transesophageal probe was placed in to the distal esophagus and stomach. Echocardiographic images were obtained. FINDINGS: 1. Left atrial enlargement. 2. Marked right atrial enlargement. 3. The right ventricle is markedly dilated. 4. The left ventricle is mildly dilated. 5. Ruptured chordae tendineae of the posterior leaflet was noted. 6. Severe mitral regurgitation. 7. Mild tricuspid regurgitation. 8. Prosthetic aortic valve. 9. Atherosclerotic debris in the descending aorta. IMPRESSION: Ruptured mitral chordae tendonae of the posterior mitral leaflet with severe mitral regurgitation. POS: JOSE
== END ==
LOC: CCL 06:21
PROVIDERS: ATTEND Internal Medicine Cardiovascular Disease
DX: Z95.2 Presence of prosthetic heart valve; R41.0 Disorientation, unspecified; I10 Essential (primary) hypertension; I08.1 Rheumatic disorders of both mitral and tricuspid valves; Z88.2 Allergy status to sulfonamides; I70.0 Atherosclerosis of aorta; Z82.49 Family history of ischemic heart disease and other diseases of the circulatory system; Z87.891 Personal history of nicotine dependence
CPT/HCPCS: 93312; J2704

== ENCOUNTER 2018-10-11 14:40 | Observation (INO) | payer MEDICARE, BC ==
[2018-10-11 15:47] LABS: #Basophils 0.1 thou/uL (0.0-0.2); #Eosinphils 0.1 thou/uL (0.0-0.7); #Monocytes 0.9 thou/uL (0.11-0.59); #Neutrophils 5.6 thou/uL (1.40-6.50); %Basophils 0.6 % (0.0-1.0); %Eosinophils 1.5 % (0.0-10.0); %Lymphocytes 23.1 % (21.0-51.0); %Monocytes 10.5 % (0.0-10.0); %Neutrophils 64.3 % (42.0-75.0); Hemoglobin 15.7 g/dL (14.0-18.0); Mean Corpuscular HGB CONC 32.4 g/dL (32.0-36.0); Mean Corpuscular Hemoglobin 31.3 pg (27.0-31.0); Mean Corpuscular Volume 96.5 fL (78.0-98.0); Mean Platelet Volume 9.1 fL (7.4-10.4); Platelet Count 175 thou/uL (130-400); RBC Distribution Width 12.5 % (11.5-14.5); Red Blood Cell (RBC) Count 5.01 mill/uL (4.70-6.10); White Blood Cell (WBC) Count 8.7 thou/uL (4.8-10.8)
[2018-10-11 16:09] LABS: ALT (SGPT) 90 U/L (8-55); AST (SGOT) 199 U/L (5-34); Albumin 4.2 g/dL (3.4-4.8); Alkaline Phosphatase 137 U/L (40-150); Anion Gap 15 mmol/L (10-20); BUN (Urea Nitrogen) 20 mg/dL (8.4-25.7); Bilirubin, Total 2.1 mg/dL (0.2-1.2); CK (CPK) 41 U/L (30-200); Calc. Creatinine Clearance 0 mL/min (70-130); Calcium 9.8 mg/dL (7.8-10.44); Carbon Dioxide 26 mmol/L (23-31); Chloride 104 mmol/L (98-107); Estimated GFR-MDRD 65; Globulin 3.6 g/dL (2.4-3.5); Glucose 122 mg/dL (83-110); Lipase 40 U/L (8-78); Potassium 3.8 mmol/L (3.5-5.1); Protein, Total 7.8 g/dL (5.8-8.1); Sodium 141 mmol/L (136-145)
[2018-10-11] MEDS ORDERED: Furosemide 40 MG/4 ML VIAL ONE (16:41)
--- NOTE | 2018-10-11 16:45 | PDOC.FPRHP ---
- History of Present Illness Chief Complaint: Chest pain History of Present Illness: Mr. Jackson is an 88 yo M with PMH CAD, MN, CVA He woke up this morning and had breakfast. After breakfast, got in car and began to have chest pain around 0830. Went ot doctor's office and they recommended he go to ER. Central substernal constant chest pain, described as burning. No radiation. Pain lasted about 3 hours. Denies SOB, dizziness, diaphoresis, swelling. Not associated with exertion. Was given nitro paste, GI cocktail at 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 Says chest pain resolved in ambulance during transfer. Foster Winder: Dr. Smith ED Course: Nitro paste, aspirin, GI cocktail, Lasix 40mg IV - Allergies/Adverse Reactions Allergies Allergy/AdvReac Type Severity Reaction Status Date / Time Sulfa (Sulfonamide Allergy Verified 10/11/18 19:24 Antibiotics) - Home Medications Medication Instructions Recorded Confirmed Type Aspirin [Ecotrin Regular Strength] 325 mg PO DAILY 02/06/15 10/11/18 History Cyanocobalamin (Vitamin B-12) 1,000 mcg PO DAILY 02/06/15 10/11/18 History [Vitamin B-12] Lisinopril 10 mg PO DAILY 02/06/15 10/11/18 History Ubidecarenone [Co Q-10] 100 mg PO DAILY 02/06/15 10/11/18 History Amlodipine [Norvasc] 5 mg PO DAILY 01/06/17 10/11/18 History Cholecalciferol (Vitamin D3) 1 cap PO DAILY 01/06/17 10/11/18 History [Vitamin D] Clopidogrel Bisulfate [Plavix] 75 mg PO DAILY 01/06/17 10/11/18 History Furosemide [Lasix] 20 mg PO DAILY #30 tab 09/26/17 10/11/18 Rx Atorvastatin Calcium 20 mg PO HS 10/11/18 10/11/18 History Metoprolol Succinate [Toprol XL] 25 mg PO DAILY 10/11/18 10/11/18 History Potassium Chloride 10 meq PO DAILY 10/11/18 10/11/18 History Tolterodine Tartrate [Detrol LA] 4 mg PO DAILY 10/11/18 10/11/18 History - History PMHx: HTN, HLD, aortic stenosis, [place] s/p stents, multiple CVA PSHx: bilateral cataracts, aortic valve replacement FHx: Unknown, denies Social: No tobacco, alcohol, drug use. Lives in [place] with . - Review of Systems General: denies: fever/chills, weight/appetite/sleep changes ENT: denies: nasal congestion Respiratory: denies: cough, shortness of breath Cardiovascular: reports: chest pain. denies: edema, orthopnea Gastrointestinal: denies: nausea, vomiting, diarrhea, constipation Genitourinary: denies: dysuria Skin: denies: rashes Musculoskeletal: denies: pain, swelling Neurological: denies: numbness, syncope - Vital signs BP: 112/68, Pulse: 76, Resp: 16, Pain: 0, O2 sat: 97 on 3L Oxygen - Physical Exam Constitutional: NAD HEENT: normocephalic and atraumatic, grossly normal vision, grossly normal hearing Neck: supple, trachea midline, no bruits Chest: no-tender to palpation Heart: RRR, normal S1/S2, pulses present, no edema Lungs: CTAB, no respiratory distress Abdomen: soft, non-tender, bowel sounds present Musculoskeletal: normal structure, normal tone Neurological: no focal deficit, other (BLE and BUE 5/5 muscle strength) Skin: no rash/lesions, good turgor Heme/Lymphatic: no unusual bruising or bleeding Psychiatric: normal mood and affect FMR H&P: Results - Labs Result Diagrams: 10/11/18 15:39 10/11/18 15:39 Lab results: WBC 8.7 thou/uL (4.8-10.8) 10/11/18 15:39 Hgb 15.7 g/dL (14.0-18.0) 10/11/18 15:39 Hct 48.4 % (42.0-52.0) 10/11/18 15:39 MCV 96.5 fL (78.0-98.0) 10/11/18 15:39 Plt Count 175 thou/uL (130-400) 10/11/18 15:39 Neutrophils % 64.3 % (42.0-75.0) 10/11/18 15:39 Sodium 141 mmol/L (136-145) 10/11/18 15:39 Potassium 3.8 mmol/L (3.5-5.1) 10/11/18 15:39 Chloride 104 mmol/L (98-107) 10/11/18 15:39 Carbon Dioxide 26 mmol/L (23-31) 10/11/18 15:39 BUN 20 mg/dL (8.4-25.7) 10/11/18 15:39 Creatinine 1.07 mg/dL (0.7-1.3) 10/11/18 15:39 Glucose 122 mg/dL (83-110) H 10/11/18 15:39 Calcium 9.8 mg/dL (7.8-10.44) 10/11/18 15:39 Total Bilirubin 2.1 mg/dL (0.2-1.2) H 10/11/18 15:39 AST 199 U/L (5-34) H 10/11/18 15:39 ALT 90 U/L (8-55) H 10/11/18 15:39 Alkaline Phosphatase 137 U/L (40-150) 10/11/18 15:39 Creatine Kinase 41 U/L (30-200) 10/11/18 15:39 B-Natriuretic Peptide 578.7 pg/mL (0-100) H 10/11/18 15:39 Serum Total Protein 7.8 g/dL (5.8-8.1) 10/11/18 15:39 Albumin 4.2 g/dL (3.4-4.8) 10/11/18 15:39 Lipase 40 U/L (8-78) 10/11/18 15:39 FMR H&P: A/P - Problem List (1) Chest pain Current Visit: Yes Status: Acute Code(s): R07.9 - CHEST PAIN, UNSPECIFIED Comment: Pt appears to have had an old PE, also has RV dilatation on 2D echo. recent echo done in Jul 2017 at his excavating contractor's office showed normal RV. Pulmonology consulted for opinion and help with management. (2) CAD (coronary artery disease) Current Visit: Yes Status: Chronic Code(s): I25.10 - ATHSCL HEART DISEASE OF [place] CORONARY ARTERY W/O ANG PCTRS Comment: stable (3) H/O aortic valve replacement Current Visit: Yes Status: Chronic Code(s): Z95.2 - PRESENCE OF PROSTHETIC HEART VALVE Comment: stable (4) HLD (hyperlipidemia) Current Visit: Yes Status: Chronic Code(s): E78.5 - HYPERLIPIDEMIA, UNSPECIFIED Comment: on statin (5) HTN (hypertension) Current Visit: Yes Status: Chronic Code(s): I10 - ESSENTIAL (PRIMARY) HYPERTENSION Qualifiers: Hypertension type: essential hypertension Qualified Code(s): I10 - Essential (primary) hypertension Comment: Continue to monitor vital signs and titrate antihypertensives as needed (6) Transaminitis Current Visit: Yes Status: Acute Code(s): R74.0 - NONSPEC ELEV OF LEVELS OF TRANSAMNS & LACTIC ACID DEHYDRGNSE - Plan Atypical chest pain, ACS rule out - Heart score 6 - CP resolved in ambulance to our ED (received nitro, asa and GI cocktail) - troponin negative x2, continue to trend - EKG in our ED showed T wave inversion V1-3 - plan for stress test in am - will discuss case with cardiology in morning CAD, [place] s/p stents - continue home aspirin, clopidegrel Valvular disease - s/p aortic valve replacement - last echo 08/2017 EF 60-65%, high pulm artery pressure, R ventricular enlargement - 09/13 JEFF ruptured mitral chorda tendonae with severe mitral regurgitation Elevated BNP - BNP 578, (1100 one year ago) - s/p 40 mg IV lasix in ED, does not appear volume overloaded at this time, asymptomatic. Will monitor for signs of volume overload. Transaminitis - AST 199, ALT 90, T bili 2.1 - never elevated on previous labs in the system - will get hepatitis panel and RUQ US HTN - continue home lisinopril. Hold metoprolol for stress. HLD - continue home atorvastatin Diet: HH/NPO Ppx: Lovenox Dispo: admit to telemetry for observation, likely d/c in 48 hrs PCP: Karrie Foster Winder: Luis Case discussed with Dr. Tucker. FMR H&P: Upper Level - Pertinent history 88 yo male presenting from outside ER with chest pain starting today after breakfast. Pt is poor historian and much of PMH comes from past records. Hx of HFpEF, severe mitral regurg, severely elevated pulm artery pressures, HTN, dyslipidemia, CAD with CABG x 1 in 01/2015, aortic stenosis with aortic valve replacement in 01/2015 with Magna bioprosthetic valve. Pt reports he had substernal chest pain , constant, unable to describe, with no radiation. Went to doctors office who told him to go to ED. Was transported to [facility] ER via ambulance and CP resolved in transit. Pt denies SOB, diaphoresis, recent MADERA, leg swelling, orthopnea. Also describes hx of stent placement approx. 3 months ago. Foster Winder is Dr. Smith. Also had hx of aortic valve replacement per patient history. - Pertinent findings 90/59 HR: 74 RR: 24 100% on RA ECHO on 08/2017: EF 60-65% with severely dilated left atrium, severe mitral regurg, mitral valve prolapse, moderate tricuspid regurg, pulm artery systolic pressure approx. 60mmHg and gradients within normal range for prosthetic aortic valve EKG: T wave inversions GEN: NAD, oriented to person, location, day of week, but not month or year CARD: RRR, ISMA 10/02 PULM: CTAB ABD: soft, nontender EXT: no cyanosis or edema All labs reviewed and noted in Dr. Gill note - Plan Date/Time: 10/11/18 1644 IMonroe DO, have evaluated this patient and agree with findings/plan as outlined by automotive internet sales consultant resident. Pertinent changes/additions are listed here. #atypical chest pain -heart score of 6 -neg trops initially, will continue to trend -discuss with excavating contractor in the AM, decide whether to get ECHO vs stress -check Mg, Phos, TSH - Dx includes GERD, costochondritis -admit to tele #elevated liver enzymes -new onset -check RUQ US, GGT, hep panel #HTN #Hx of CABG, aortic valve replacement, stents -discuss with cardiology tomorrow Addendum - Attending - Attending Attestation Date/Time: 10/12/18 0101 I personally evaluated the patient and discussed the management with Dr. Huff I agree with the History, Examination, Assessment and Plan documented above with any addition or exceptions noted below. Pleasant 88 yo male with episode angina earlier today spontaneously resolved questionably after GI cocktail given at outside hospital s/pAVR 2 v CABG patient poor historian admitted r/o ACS troponins negative will consult with Dr Smith in am for further consideration
[2018-10-11] MEDS ORDERED: Aspirin Chewable 81 MG TAB ONE (18:15)
[2018-10-11] MEDS ORDERED: Ondansetron ODT 4 MG TAB PO PRN (18:48)
[2018-10-11] MEDS ORDERED: Acetaminophen 325 MG TAB PO PRN (18:48)
[2018-10-11] MEDS ORDERED: Furosemide 40 MG/4 ML VIAL SLOW IVP ONE (18:51)
[2018-10-11 19:10] VITALS: BMI 22.1
[2018-10-11 20:02] LABS: HBSAg Index 0.29 S/CO (0-0.99); Hep B Surf Ag Non-Reactive S/CO (NonReactive); Hep C IgG Ab Non-Reactive (NonReactive); Hep C Index 0.15 S/CO (0-0.79)
[2018-10-11] MEDS ORDERED: Atorvastatin Calcium 20 MG TAB PO SCH (21:00)
[2018-10-11] MEDS: Lactated Ringer's 1,000 ML IV SCH (21:22)
[2018-10-11 22:00] LABS: HBSAB Concentration 17.68 mIU/mL; Hep B Surf AB Reactive (NonReactive)
[2018-10-11 23:53] LABS: Hep B Core Total Ab Reactive (NonReactive); Hep B Core Total Index 6.67 S/CO (0-0.79)
[2018-10-12 05:31] LABS: ALT (SGPT) 135 U/L (8-55); AST (SGOT) 164 U/L (5-34); Albumin 3.4 g/dL (3.4-4.8); Alkaline Phosphatase 137 U/L (40-150); Anion Gap 11 mmol/L (10-20); BUN (Urea Nitrogen) 19 mg/dL (8.4-25.7); Calc. Creatinine Clearance 52 mL/min (70-130); Carbon Dioxide 24 mmol/L (23-31); Chloride 106 mmol/L (98-107); Estimated GFR-MDRD 73; Globulin 3.5 g/dL (2.4-3.5); Glucose 91 mg/dL (83-110); Protein, Total 6.9 g/dL (5.8-8.1); Sodium 137 mmol/L (136-145)
--- NOTE | 2018-10-12 06:50 | PDOC.FM ---
- Subjective Subjective: Mr. Jackson denies any chest pain, SOB. Resting well in bed with at bedside. - Objective MAR Reviewed: Yes Vital Signs & Weight: Vital Signs (12 hours) Temp Pulse Resp BP BP Pulse Ox 10/12/18 05:43 71 103/56 L 10/12/18 04:09 98.7 F 64 18 84/54 L 93 L 10/11/18 19:20 96 Weight Weight 69.49 kg I&O: 10/10/18 10/11/18 10/12/18 06:59 06:59 06:59 Intake Total 795 Output Total 320 Balance 475 Result Diagrams: 10/11/18 15:39 10/12/18 04:20 Phys Exam - Physical Examination Constitutional: NAD Respiratory: clear to auscultation bilateral Cardiovascular: RRR click and blowing pansystolic murmur Gastrointestinal: soft, non-tender Musculoskeletal: no edema Neurological: non-focal Dx/Plan (1) Chest pain Code(s): R07.9 - CHEST PAIN, UNSPECIFIED Status: Acute (2) CAD (coronary artery disease) Code(s): I25.10 - ATHSCL HEART DISEASE OF [place] CORONARY ARTERY W/O ANG PCTRS Status: Chronic (3) H/O aortic valve replacement Code(s): Z95.2 - PRESENCE OF PROSTHETIC HEART VALVE Status: Chronic (4) HLD (hyperlipidemia) Code(s): E78.5 - HYPERLIPIDEMIA, UNSPECIFIED Status: Chronic (5) HTN (hypertension) Code(s): I10 - ESSENTIAL (PRIMARY) HYPERTENSION Status: Chronic Qualifiers: Hypertension type: essential hypertension Qualified Code(s): I10 - Essential (primary) hypertension (6) Transaminitis Code(s): R74.0 - NONSPEC ELEV OF LEVELS OF TRANSAMNS & LACTIC ACID DEHYDRGNSE Status: Acute - Plan Plan: Atypical chest pain, ACS rule out - Heart score 6 - CP resolved in ambulance to our ED (received nitro, asa and GI cocktail) - troponin negative x3 - EKG in our ED showed T wave inversion V1-3 - plan for stress test in am - Cardiology, Dr. Smith consulted CAD, [place] s/p stents - continue home aspirin, clopidegrel Valvular disease - s/p aortic valve replacement - last echo 08/2017 EF 60-65%, high pulm artery pressure, R ventricular enlargement - 09/13 EJFF ruptured mitral chorda tendonae with severe mitral regurgitation Elevated BNP - BNP 578, (1100 one year ago) - s/p 40 mg IV lasix in ED, does not appear volume overloaded at this time, asymptomatic. 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 US pending. HTN - continue home lisinopril. Hold metoprolol for stress. HLD - continue home atorvastatin Diet: HH/NPO Ppx: Lovenox Dispo: pending workup Addendum - Attending - Attending Attestation Date/Time: 10/12/18 3509 I personally evaluated the patient and discussed the management with Dr. Huff. I agree with the History, Examination, Assessment and Plan documented above with any addition or exceptions noted below. Atpical CP- Known CAD EKGs reviewed showing new RBBB changed since 2014. Stress test ordered but not done until Dr. Smith approves (secondary to new EKG changes). Appreciate his recs h/o AVR and ruptured cordea tendonae- ECHO done this am. Pending read Transaminitis-improved- hep panel with no acute infection and RUQ u/s normal. Possibly secondary to statin use (however benefit outweights risk of mild elevation). Will trend in outpatient setting.
--- NOTE | 2018-10-12 07:20 | ULT ---
ULTRASOUND ABDOMEN COMPLETE: INDICATIONS: Transaminitis. TECHNIQUE: Redman-scale ultrasound evaluation of the liver, gallbladder, spleen, pancreas, common bile duct, kidne ys, abdominal aorta, and inferior vena cava (IVC). FINDINGS: No focal hepatic lesion. The common duct measures 6 mm. which is normal for the patient's age. Subt le, low-level echoes of the gallbladder lumen may relate to sludge/non-shadowingstones. There is no overt hydronephrosis of the kidneys. Hypoechoic foci within each kidney indicate bilateral renal cys t formation. No focal abnormality of the spleen is seen. The pancreas is partially obscured by reta l content, which does limit assessment. Imaged abdominal aorta is nonaneurysmal. No ascites. IMPRESSION: 1. No acute abnormalities identified. 2. Probable small volume gallbladder sludge/nonshadowing stones. 3. Bilateral renal cyst formation. The largest documented cyst is involving the left kidney, slight ly greater than 7 cm in diameter. POS: NWK
[2018-10-12 08:59] LABS: Troponin I 0.024 ng/mL (< 0.028)
[2018-10-12] MEDS ORDERED: Furosemide 20 MG TAB PO SCH (09:00)
[2018-10-12] MEDS ORDERED: Amlodipine 5 MG TAB PO SCH (09:00)
[2018-10-12] MEDS ORDERED: Potassium Chloride 10 MEQ TAB PO SCH (09:00)
[2018-10-12] MEDS ORDERED: Ubidecarenone 50 MG CAP PO SCH (09:00)
[2018-10-12] MEDS ORDERED: Lisinopril 10 MG TAB PO SCH (09:00)
[2018-10-12] MEDS ORDERED: Aspirin 325 mg Enteric Coated Tablet PO SCH (09:00)
[2018-10-12] MEDS ORDERED: Enoxaparin Sodium 40 MG/0.4 ML SYRINGE SC SCH (09:00)
[2018-10-12] MEDS ORDERED: Clopidogrel Bisulfate 75 MG TAB PO SCH (09:00)
[2018-10-12] MEDS ORDERED: Trospium 20 MG TAB PO SCH (09:00)
[2018-10-12] MEDS ORDERED: Cyanocobalamin (Vitamin B-12) 1,000 MCG TAB PO SCH (09:00)
[2018-10-12 11:10] VITALS: TEMP 97.8
[2018-10-12] MEDS: Lactated Ringer's 1,000 ML IV SCH (12:00)
[2018-10-12] MEDS ORDERED: ADENOSINE 60 MG/20 ML VIAL ONE (15:21)
--- NOTE | 2018-10-12 15:22 | NM ---
EXAM: CARDIAC SPECT HISTORY: Chest pain, coronary artery disease, hypertension, dyslipidemia TECHNIQUE: A myocardial perfusion scan was performed using the single isotope 1 day protocol with dimitry hnetium 99m sestamibi. [10 mCi] was injected intravenously for the rest exam followed by 30 mCi for the stress study. Pharmacologic stress with adenosine was monitored and interpreted by Dr. Lopez FINDINGS: Homogeneous tracer distribution is seen in the myocardial segments on stress and rest image s without fixed or reversible defects. Gated SPECT LVEF: 73% Wall motion exam: Normal IMPRESSION: Normal myocardial perfusion scan
[2018-10-12 15:45] VITALS: BP 125/65
--- NOTE | 2018-10-12 20:23 | CON ---
DATE OF CONSULTATION: HISTORY: [place] Jackson is a pleasant 88-year-old white male, initially evaluated in January 2008. At that time, he developed shingles and was going to undergo acupuncture. It was noted that he had a heart murmur as well as a carotid bruit. He denied any chest, arm, neck or jaw discomfort, exertional shortness of breath, or syncope. He did complain of some fatigue. Echo when he was initially evaluated revealed a peak gradient of 46 mm with a mean gradient of 26 mm. Carotid Doppler revealed minimal atherosclerotic plaque, but no significant stenosis. It was felt that he had [id number] aortic stenosis. He continued to be followed every 6 months with echos every 1 to 1-1/2 years. In July 2009, he did have a left frontal CVA that affected his memory. He did not have any arm or leg weakness. Aspirin was increased from 81 mg to 325 mg daily and Plavix 75 was added. His aortic valve continued to worsen and in January 2014, ejection fraction was 55% to 60% with mild concentric left ventricular hypertrophy. He had severe aortic stenosis with a peak gradient of 76 mm, mean gradient of 44 mm, and an aortic valve area of 0.5 cm2. He continued to deny any chest discomfort, shortness of breath, PND, or exertional syncope, although he did state that he continued to have worsening fatigue. In January 2015, he developed vertiginous symptoms, feeling that the room was spinning. He did not have any nausea. He went to see Dr. Yoon and was sent to the lab. When he went to have blood work done, he leaned over to sign in, apparently had a falling episode. He remembered falling and hitting the floor and it did not sound as if he had a true syncopal episode. It was felt at that time that his symptoms were due to acute labyrinthitis. However, with his worsening aortic stenosis, it was recommended that he undergo cardiac catheterization. Carotid Dopplers were performed, which revealed no hemodynamically significant stenosis. At catheterization, he had ejection fraction of 50% to 55% with severe mitral regurgitation. Aortic root injection revealed mild aortic insufficiency. The mean aortic gradient was 63 mm with aortic valve area of 0.62 cm2. Coronary angiography revealed a 40% to 50% proximal LAD lesion. There was a 70% ostial right coronary artery lesion with a pressure damping of 30 mm. He then underwent CABG x1 with saphenous vein graft to distal right coronary artery and aortic valve replacement with a #23 Magna bioprosthetic valve by Dr. Gustavo Pavon. He did develop postoperative hemorrhage and had to return to the operating room. There was 2700 mL of blood and clot within the right chest, which was evacuated. No bleeding source was identified within the chest or the mediastinum, and no further hemorrhage was noted. The remainder of his hospital stay was unremarkable. In December 2016, he was admitted with respiratory failure with hypoxia and community-acquired pneumonia. He underwent CT angiogram, which revealed no evidence of pulmonary embolism. In August 2017, he was admitted with increasing lower extremity edema. His ejection fraction was 60% to 65%. However, he did have severe mitral regurgitation. He was diuresed. He was on Lasix 40 mg daily when he was admitted; however, he was sent home only on 20 mg daily. He presented to the office complaining of dyspnea on exertion walking in the house, but denied any PND or orthopnea. He was placed back on furosemide 40 mg q.a.m. It was felt that his dyspnea is probably due to severe mitral regurgitation and Lasix was further increased to 40 q.a.m. and 20 q.p.m. With his severe mitral regurgitation, he underwent transesophageal echo on October 05, 2017. This revealed ruptured chordae tendineae of the posterior leaflet and severe mitral regurgitation. He never did return for followup after the transesophageal echo. He apparently has continued to do well, and denies any shortness of breath or chest discomfort until yesterday. Yesterday after eating breakfast, he developed substernal chest pressure that lasted 3 or 4 hours. He went to the emergency room in [place] and nothing specific was found. It sounds as if he was given some type of antacid right prior to get on the ambulance for transfer and while being transferred here, his pain dramatically resolved. Cardiac enzymes are totally normal despite for 3 or 4 hours of pain. Cardiolite has been normal. PAST MEDICAL HISTORY: Hypertension, hyperlipidemia, history of CVA in 2009 with Plavix added to the aspirin, coronary artery disease. OPERATIONS: CABG x1 to the right coronary artery and aortic valve replacement and cataracts as well as partial thyroidectomy. MEDICATIONS: 1. Amlodipine 5 mg daily. 2. Aspirin 325 daily. 3. Plavix 75 mg daily. 4. Atorvastatin 20 q.h.s. 5. Vitamin B12. 6. Furosemide 20 mg daily. 7. Lisinopril 10 mg daily. 8. Metoprolol 25 mg daily. 9. Nitroglycerin p.r.n. 10. Lisinopril 10 daily. 11. Potassium chloride 10 mEq daily. 12. Detrol 4 mg daily. ALLERGIES: HE STATES THAT HE DEVELOPED A RASH AFTER EATING SHRIMP MANY YEARS AGO, BUT HE HAS ALSO UNDERGONE NUMEROUS RADIOLOGICAL PROCEDURES WITHOUT PREMEDICATION FOR IODINE AND I DOUBT THAT HE IS ALLERGIC TO IV CONTRAST. SULFA DRUGS. SOCIAL HISTORY: He smoked less than a pack per day, but stopped in the 1960s. He does not drink alcohol. He is retired from work of [email or web address]. FAMILY HISTORY: Sister had sudden at age 70 for unknown reasons. REVIEW OF SYSTEMS: A 10-point review of systems is otherwise unremarkable. PHYSICAL EXAMINATION: VITAL SIGNS: Blood pressure 125/65, pulse of 72. HEENT: PERRL. NECK: Supple. CHEST: Clear. CARDIAC: S1 and S2 normal without any S3 or S4. There is a 2/6 systolic ejection murmur in the aortic area and at the apex, 2/6 holosystolic murmur. ABDOMEN: Normal bowel sounds without tenderness. Specifically, there is no right upper quadrant tenderness. EXTREMITIES: Reveal no edema. NEUROLOGIC: Grossly intact. SKIN: Warm and dry. LABORATORY DATA: EKG reveals normal sinus rhythm with right bundle-branch block. Inverted T-wave, V1 through V3, which is similar to the last EKG in the office. Echocardiogram revealed normal left ventricular function with ejection fraction 60% to 65%, moderately enlarged right ventricle, severely dilated left atrium, prolapse of the anterior leaflet of the mitral valve, severe mitral regurgitation, normally functioning bioprosthetic valve in the aortic position, severe mitral regurgitation, and moderate pulmonic regurgitation. Abdominal ultrasound revealed small volume gallbladder with sludge, bilateral renal cysts. Adenosine Cardiolite revealed ejection fraction of 73% with normal wall motion and normal myocardial perfusion. Hemoglobin 15.7, hematocrit 48.4, white count 8700, platelets 175,000. D-dimer 2.14. Sodium 137, potassium 4.0, chloride 106, carbon dioxide 24, BUN 19, creatinine 0.97. AST 199, ALT 90 yesterday. Today, AST 164, ALT 137. Alkaline phosphatase has remained normal at 137. Troponin I has been normal x2. IMPRESSION: 1. Noncardiac chest pain. He does have elevated liver function test. However, his alkaline phosphatase remains normal and gallbladder appears small with sludge and small stones. 2. Status post CABG x1 to the right coronary artery and aortic valve replacement. Cardiolite scan reveals no evidence of ischemia. 3. Valvular heart disease, status post aortic valve replacement and also severe mitral and tricuspid regurgitations, which are not new findings. He did undergo transesophageal echo in September 2017, which revealed severe mitral regurgitation. However, he has never returned for followup after that. 4. History of heart failure in December 2016. 5. Hypertension. 6. Hypercholesterolemia. 7. History of cerebrovascular accident in 2009. 8. Positive family history. PLAN: Mr. Jackson's current episode of chest discomfort does not appear to be cardiac in nature. It certainly could have been due to passing a gallstone with his elevated liver function tests, although the alkaline phosphatase is not elevated. From a cardiac standpoint, I do not feel any further cardiac evaluation is warranted at this time. He does have significant mitral regurgitation. However, with his advanced age, approaching repair of that would probably be something that he never recover from. Consideration could be given to the mitral valve clip. He also is on 20 mg of Lasix. However, last time he was seen, he was on 40 mg and I do feel that this should be increased back to 40 mg. Fasting lipid profile will be obtained in the morning and repeat liver function test. However, at this time from a cardiac standpoint, I do not feel that any further evaluation is warranted. Job ID: [id number]
[2018-10-13] MEDS ORDERED: Furosemide 40 MG TAB PO SCH (07:30)
--- NOTE | 2018-10-13 10:30 | DIS ---
DATE OF ADMISSION: 10/11/2018 DATE OF DISCHARGE: 10/12/2018 RESIDENT: Dr. Ysabel Huff. ADMITTING ATTENDING: Dr. Tucker. CONSULTS: Cardiology, Dr. Smith. PROCEDURES: 1. On 10/12/2018, stress nuclear medicine test showed normal myocardial perfusion scan. 2. 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 3. On 10/12/2018, abdominal ultrasound showed no acute abnormalities, probable small volume gallbladder sludge/non shadowing stones, bilateral renal cyst formation, the largest documented cyst is involving the left kidney, slightly greater than 7 cm in diameter. PRIMARY DIAGNOSES: 1. Atypical chest pain, acute coronary syndrome rule out. 2. Valvular disease. 3. Elevated BNP. 4. Transaminitis. SECONDARY DIAGNOSES: 1. Hypertension. 2. Hyperlipidemia. 3. Coronary artery disease. 4. Myocardial infarction, status post stents. DISCHARGE MEDICATIONS: 1. Vitamin B12 1000 mcg p.o. daily. 2. CoQ10 100 mg p.o. daily. 3. Aspirin 325 mg p.o. daily. 4. Lisinopril 10 mg p.o. daily. 5. Amlodipine 5 mg p.o. daily. 6. Clopidogrel 75 mg p.o. daily. 7. Vitamin D3 one capsule p.o. daily 1000 units. 8. Furosemide 20 mg p.o. daily. 9. Atorvastatin 20 mg p.o. h.s. 10. Tolterodine tartrate 4 mg p.o. daily. 11. Potassium chloride 10 mEq p.o. daily. 12. Metoprolol succinate (Toprol-XL) 25 mg p.o. daily. HISTORY OF PRESENT ILLNESS: An 88-year-old male with past medical history of coronary artery disease, CVA, [place], and aortic valve replacement, presented with evaluation of chest pain. The patient was initially seen at [facility] Emergency Department and was transferred here as his care coordination manager, Dr. Smith who is here. Chest pain resolved in the ambulance during this transfer. At the outside ER, he received a GI cocktail, nitroglycerin. The patient was admitted for atypical chest pain and ACS rule out. Heart Score 6. Troponins were negative. EKG showed T-wave inversion in V1 through 3. The patient was otherwise continued on home medications apart from beta geoffrey. Cardiology was consulted and Dr. Smith saw him. He believes that Mr. Jackson's current episode of chest discomfort did not appear to be cardiac in nature. Could have been due to passing away gallstone considering elevated liver function test. However, alkaline phosphatase was not elevated. He did not feel any further cardiac evaluation was warranted. He noted that patient does have significant mitral regurgitation. However, with advanced age, repair of this would probably be something that he would never recover from. Consideration could be given to the mitral valve clip. He recommended the patient to take Lasix 40 mg daily. Of note, the patient's blood pressure at times during hospitalization was 98/54. For this reason, blood pressure medications were held morning of discharge. LABORATORY DATA: Notable labs include AST 164 and ALT 135 at the time of discharge. Hepatitis C antibody negative. 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 DISPOSITION: Stable. DISCHARGE INSTRUCTIONS: 1. Location, home. 2. Diet, heart healthy. 3. Activity, as tolerated. 4. Follow up with PCP, Dr. Karrie Mcneil in 7 days. 5. Follow up with Dr. Smith in 3 to 4 weeks. Job ID: [id number]
== END 2018-10-12 18:52 | disposition home or self-care (01) ==
LOC: ERS 14:40 → 2SW 16:42
PROVIDERS: ADMIT Emergency Medicine; ATTEND Emergency Medicine
DX: R07.89 Other chest pain (principal); I25.10 Atherosclerotic heart disease of native coronary artery without angina pectoris; I25.2 Old myocardial infarction; E78.5 Hyperlipidemia, unspecified; R74.0 Nonspecific elevation of levels of transaminase and lactic acid dehydrogenase [LDH]; I11.0 Hypertensive heart disease with heart failure; I50.30 Unspecified diastolic (congestive) heart failure; I45.10 Unspecified right bundle-branch block; E89.0 Postprocedural hypothyroidism; Z87.891 Personal history of nicotine dependence; Z86.73 Personal history of transient ischemic attack (TIA), and cerebral infarction without residual deficits; Z79.82 Long term (current) use of aspirin; Z79.02 Long term (current) use of antithrombotics/antiplatelets; Z79.899 Other long term (current) drug therapy; Z88.2 Allergy status to sulfonamides; Z95.5 Presence of coronary angioplasty implant and graft; Z95.2 Presence of prosthetic heart valve; Z95.1 Presence of aortocoronary bypass graft
CPT/HCPCS: 76700; 78452; 80053 ×2; 82550; 83690; 83880; 84484 ×2; 85025; 86704; 86706; 86803; 87340; 93005; 93017; 93306; 94760; 96361 ×2; 99285; A9500; G0378 ×2; 36415; J0153; J1940